=== PATIENT | female | born 1990 | race Caucasian/White ===

== ENCOUNTER 2021-02-15 13:34 | Emergency (ER) | payer MEDICAID ==
[~2021-02-15] VITALS: Ht 170.2 cm; Wt 62.7 kg
[2021-02-15 14:05] VITALS: BP 119/80
[2021-02-15] MEDS ORDERED: CYCL-1 PO (15:19)
[2021-02-15] MEDS ORDERED: HYDROcodone/acetaminophen 5mg/325mg tablet PO ONE (15:20)
== END 2021-02-15 15:34 | disposition home or self-care (01) ==
LOC: ER 13:35
DX: S46.912A Strain of unspecified muscle, fascia and tendon at shoulder and upper arm level, left arm, initial encounter (principal); G89.29 Other chronic pain; Z79.899 Other long term (current) drug therapy; X50.1XXA Overexertion from prolonged static or awkward postures, initial encounter; Y93.89 Activity, other specified; Y92.89 Other specified places as the place of occurrence of the external cause; Y99.8 Other external cause status
CPT/HCPCS: 99283

== ENCOUNTER 2023-03-30 23:58 | Emergency (ER) | payer MEDICAID ==
[~2023-03-30] VITALS: Ht 170.2 cm; Wt 56.0 kg
[~2023-03-30 23:58] MED LIST: CYCL-1 PO
[2023-03-31 00:07] VITALS: BP 140/88
[2023-03-31] MEDS ORDERED: HYDR-3965 PO (00:29)
[2023-03-31] MEDS ORDERED: AMOX-117 PO (00:29)
[2023-03-31] MEDS ORDERED: amox tr/potassium clavulanate 875/125mg TAB PO ONE (00:30)
[2023-03-31] MEDS ORDERED: HYDROcodone/acetaminophen 5mg/325mg tablet PO ONE (00:30)
== END 2023-03-31 00:43 | disposition home or self-care (01) ==
LOC: ER 23:59
DX: S02.5XXA Fracture of tooth (traumatic), initial encounter for closed fracture (principal); G89.29 Other chronic pain; Z79.899 Other long term (current) drug therapy; X58.XXXA Exposure to other specified factors, initial encounter; Y93.89 Activity, other specified; Y92.89 Other specified places as the place of occurrence of the external cause; Y99.8 Other external cause status
CPT/HCPCS: 99283